=== PATIENT | female | born 1960 | race Two or more races ===

== ENCOUNTER → 2023-01-20 | Outpatient (CLI) | payer MEDICAID ==
[2023-01-20 14:35] LABS: Alanine Aminotransferase 17 U/L (7-40); Alkaline Phosphatase 108 U/L (46-116); Aspartate Aminotransferase 13 U/L (13-40); BUN/Creatinine Ratio 11.5 (10.0-20.0); Bilirubin, Total 0.7 mg/dL (0.2-1.0); Blood Urea Nitrogen 7 mg/dL (9-23); Calcium 9.3 mg/dL (8.5-10.1); Chloride 107 mmol/L (98-107); Cholesterol 161 mg/dL (< 200); Glucose 113 mg/dL (74-106); HDL Cholesterol 44 mg/dL (40-59); LDL Cholesterol 110 mg/dL (< 100); Potassium 3.8 mmol/L (3.5-5.1); Sodium 138 mmol/L (136-145); Total Protein 6.5 g/dL (5.7-8.2); Triglycerides 103 mg/dL (< 150)
== END | disposition home or self-care (01) ==
LOC: LAB 13:47
PROVIDERS: ATTEND Nurse Practitioner
DX: E78.5 Hyperlipidemia, unspecified (principal)
CPT/HCPCS: 36415; 80053; 80061